=== PATIENT | male | born 2000 | race Caucasian/White ===

== ENCOUNTER 2020-10-26 13:33 | Emergency (ER) | payer BC, MEDICAID, SELFPAY ==
[2020-10-26 13:34] VITALS: BP 121/69; PULSE 77; RESP 18; TEMP 36.1; O2SAT 99; BMI 25.2
--- NOTE | 2020-10-26 13:57 | RAD_ITS ---
STUDY: X-RAY CHEST REASON FOR EXAM: Male., 20 years old. Chest pain. TECHNIQUE: Single AP portable view of the chest. COMPARISON: None. FINDINGS: The lungs are clear and expanded. There is no demonstrated pleural abnormality. Normal size heart. Normal mediastinum and rohan. Normal visualized pulmonary arteries. Normal visualized aortic arch and descending thoracic aorta. Normal visualized thoracic spine. Normal visualized ribs, clavicles, and shoulders. There is no demonstrated abnormality of the visualized soft tissue structures of the upper abdomen. RAD/Chest 1 View (Portable) IMPRESSION: Normal x-ray examination of the chest. Electronically Signed: Juni Leung DO at 14:44 EDT Tel [phone], Service support ,
[2020-10-26] MEDS: Ketorolac 30 MG/ML Syringe IM (14:04)
--- NOTE | 2020-10-26 15:04 | ED.VISSUMM ---
- ER Visit Summary Date of Service: 10/26/20 Chief Complaint: Upper back pain History of Present Illness: The patient is a [address] Carrera. He reports that he woke up from sleep this morning with a sharp, stabbing mid back pain. Is 10 of 10 worst and a 10 currently. Is worsened by putting on his coat or opening doors. Has not taken anything for pain. Reports that he tested negative for Covid 2 days ago. Patient denies any trauma. No fall, MVA, or change in activity. He has no personal family history of DVT. No recent travel. No ankle swelling or calf pain. Patient [place] fever, chills, or cough. Physical Examination: Vitals: Stable. Afebrile. General: Well-nourished and well-developed. Head: Normocephalic atraumatic. Neck: Supple, no lymphadenopathy. No JVD. Nontender. Cardiovascular: Regular rate and rhythm. No murmurs. Respiratory: No respiratory distress. Clear to auscultation bilaterally. Abdominal: Soft, nontender, nondistended, normal bowel sounds. No guarding, rebound, or peritoneal signs. Back: Pain is reproduced with palpation of the right rhomboid muscle. Extremities: Nontender, no edema. Skin: Normal color, no rash. Neurologic: Alert and oriented ?3. Cranial nerves II through XII are intact. Normal strength and sensation. Psych: Normal affect. Test Results: Clinical Impression(s) from Imaging Studies Chest X-Ray 10/26/20 13:57 IMPRESSION: Normal x-ray examination of the chest. Electronically Signed: Juin Leung DO at 14:44 EDT Tel [phone], Service support , Emergency Department Course and Treatment: Patient was given Toradol IM. She he is resting comfortably. His chest x-ray does not show pneumothorax. Treatment Plan: Patient be discharged with naproxen. Instructed to use warm compresses to the area. Follow-up his primary care physician in 3 to 5 days if not improving. Return to the emergency department for any worsening symptoms. Disposition: To home in improved and stable condition. Impression: 1. Muscular upper back pain. This note was generated with Get[employer] software. It may contain incorrect words, spelling, and punctuation that were not noted in review of the chart prior to signing ED Disposition - Plan for ED Patient: Disposition: Home or Assisted Living Instructions: ED Back Spasm, No Trauma Prescriptions: Naproxen [Naprosyn] 500 mg PO BID #14 tablet Prescription Printed Referrals: Ольга Delong [NON-STAFF] - 3-5 Days if not improving
[2020-10-26 15:10] VITALS: BP 128/76; PULSE 82; RESP 15; O2SAT 98
== END 2020-10-26 15:11 | disposition home or self-care (01) ==
LOC: ED 14:28
PROVIDERS: Emergency Provider Emergency Medicine
DX: M54.9 Dorsalgia, unspecified (principal); R06.00 Dyspnea, unspecified; R11.0 Nausea; R19.7 Diarrhea, unspecified; R51.9 Headache, unspecified
CPT/HCPCS: 71045; 96372; 99282

== ENCOUNTER 2020-12-24 22:05 | Emergency (ER) | payer BC, MEDICAID, SELFPAY ==
[2020-12-24 22:06] VITALS: BP 139/71; PULSE 78; RESP 18; TEMP 36.9; O2SAT 97; BMI 22.3
--- NOTE | 2020-12-24 22:26 | EX.ED.DYSGE1 ---
HPI History of Present Illness Chief Complaint: Dizziness Informant: patient Narrative Narrative: 20-year-old male presents with 17 hours of dizziness. He states that he has some nausea associated with it. He notes a pressure in the back of his head. He notes ringing in the left ear. He states that if he is in a dark room laying down and is better but if he gets up to move it is worse. He attempted to go to work tonight but states that the dizziness caused him to almost fall over. He denies any arm or leg weakness. States he is currently being treated for GERD and has an upcoming colonoscopy and endoscopy. States he sees a neurologist for arachnoid cyst. He has had symptoms like this in the past that have resolved. This however has not been resolving. Though he does state that the last time this happened it lasted approximately 5 days. [facility] Medical History Arachnoid cyst GERD (gastroesophageal reflux disease) Home Medications diazepam 5 mg PO Q8 PRN #15 tab 12/24/20 [Rx Last Taken Unknown] ondansetron 4 mg PO Q6H PRN PRN #15 tab 12/24/20 [Rx Last Taken Unknown] pantoprazole 40 mg PO DAILY 12/24/20 [History Last Taken Unknown] Allergy/AdvReac Type Severity Reaction Status Date / Time acetaminophen [From Vicodin] Allergy Anaphylaxis Verified 12/24/20 22:09 hydrocodone [From Vicodin] Allergy Anaphylaxis Verified 12/24/20 22:09 Sulfa (Sulfonamide Allergy Hives Verified 12/24/20 22:09 Antibiotics) Social History (Updated 12/24/20 @ 22:[address] Jarrett Steinberg DO) Smoking Status: Never smoker substance use type: does not use ROS ROS ED Constitutional Constitutional ED: Denies chills or weight loss Eyes Eyes: Denies change in vision or diplopia ENT ENT ED: Reports other Details: Ringing in the Left ear ; Denies ear pain, rhinorrhea or sore throat Cardiovascular Cardiovascular: Denies chest pain, orthopnea, palpitations or racing heartbeat Respiratory/Chest Respiratory/Chest: Denies cough, dyspnea or orthopnea Gastrointestinal Gastrointestinal: Denies abdominal pain, diarrhea, nausea or vomiting Genitourinary Genitourinary ED: Denies dysuria, hematuria or urinary frequency Musculoskeletal Musculoskeletal: Denies arthralgias or myalgias Integumentary Denies abscess or rash Neurologic Neurologic: Reports headache(s) and other Details: Dizziness ; Denies weakness Psychiatric Psychiatric: Denies anxiety, depression, suicidal ideation or suicidal thoughts Endocrine Endocrinology: Denies polydipsia, polyphagia or polyuria Allergic/Immunologic Allergic/Immunologic ED: Denies mouth swelling, tongue swelling or urticaria EXAM Physical Exam Const Vital Signs: 12/24/20 22:06 Temperature 98.4 F Temperature Source Temporal Pulse Rate 78 Respiratory Rate 18 Blood Pressure 139/71 H Blood Pressure Mean 93 Pulse Ox 97 Oxygen Delivery Method Room Air Positive well nourished and well developed General Appearance ED: well developed HEENT Reports normocephalic, head/scalp atraumatic and moist mucous membranes HEENT Narrative: There is fluid behind the left tympanic membrane. No significant erythema. Landmarks are decreased compared to right Eyes PERRL and EOMs intact bilaterally Eyes Narrative: No nystagmus Neck no lymphadenopathy, supple and no JVD Resp normal respiratory effort and clear to auscultation bilaterally Cardio regular rate, regular rhythm and no murmurs GI normal to inspection, nondistended, normoactive bowel sounds and non-tender Palpation: soft Back/Spine no CVA tenderness and normal ROM Extremity normal to inspection General Extremety ED: Negative for edema General Extremity: Negative for edema Neuro oriented x3 and CN's II-XII intact bilaterally Neuro Narrative: Positive [place] Sensorium / Orientation: alert Motor Exam: strength 5/5 throughout Psych mental status grossly normal Mood & Affect: Negative for depressed or tearful Skin no rashes or lesions noted and no wounds MDM MDM MDM Narrative Medical decision making narrative: Patient received IV fluids, Zofran, Toradol, and Valium. I believe this to be a peripheral vertigo. Repeat examination the patient was able to walk down the hallway to the bathroom. He states the headache is improved and his dizziness is improved but still present. I will write for him to have Zofran and Valium at home. I recommend he follow-up with his primary care physician. He states he would consider following up with an ENT and I will provide him the on-call manual training teacher. Discharge Plan Triage Chief Complaint: Dizziness ED Provider: Jarrett Steinberg Dx/Rx/DC Orders Clinical Impression: Vertigo Instructions: ED BPV Vertigo Prescriptions: New diazepam [diazepam] 5 MG tablet 5 mg PO Q8 PRN (Reason: vertigo) Qty: 15 RF: 0 ondansetron [ondansetron] 4 MG tablet 4 mg PO Q6H PRN PRN (Reason: Nausea) Qty: 15 RF: 0 No Action pantoprazole 40 mg tablet,delayed release (DR/EC) 40 mg PO DAILY RF: 0 Primary Care Provider: Beena Carrera NP Referrals: Abe Payan MD [STAFF PHYSICIAN] - As Needed (As needed if you wish to see ENT in follow-up) Beena Carrera NP, ASSISTANT TEACHING PROFESSOR-C [Primary Care Provider] - 3-5 Days if not improving Disposition Disposition: Home, Self Care
[2020-12-24] MEDS: diazePAM 5 MG Tablet PO (22:44)
[2020-12-24] MEDS: Ondansetron 4 MG/2 ML Vial IV (22:45)
[2020-12-24] MEDS: 0.9% Normal Saline 1,000 ML 1000 ML IV (22:45)
[2020-12-24] MEDS: Ketorolac 30 MG/ML Syringe IV (22:45)
[2020-12-25 00:09] VITALS: BP 118/68; PULSE 72; RESP 18; O2SAT 98
== END 2020-12-25 00:10 | disposition home or self-care (01) ==
PROVIDERS: Emergency Provider Emergency Medicine; PCP Nurse Practitioner Family
DX: H81.399 Other peripheral vertigo, unspecified ear (principal); G93.0 Cerebral cysts; K21.9 Gastro-esophageal reflux disease without esophagitis
CPT/HCPCS: 96361; 96374; 96375; 99284; J7030; J2405

== ENCOUNTER 2021-05-25 15:11 | Emergency (ER) | payer OTHER, BC, MEDICAID, SELFPAY ==
[2021-05-25 15:13] VITALS: BP 131/70; PULSE 93; RESP 18; TEMP 35.8; O2SAT 100; BMI 24.8
--- NOTE | 2021-05-25 15:58 | RAD_ITS ---
STUDY: X-RAY - THORACIC SPINE REASON FOR EXAM: Male, 21 years old. Injury/Pain TECHNIQUE: 3 view(s) of the thoracic spine were obtained. COMPARISON: None. FINDINGS: Normal kyphosis of the thoracic spine. There is no substantial scoliosis. Normal thoracic vertebrae and endplates. Normal disc space heights. The soft tissue structures are unremarkable. RAD/Thoracic Spine 3 Views IMPRESSION: Normal x-ray examination of the thoracic spine. Electronically Signed: Abe Mark MD at 19:22 EST , Service support ,
--- NOTE | 2021-05-25 16:06 | ED.VIS.BACK ---
HPI History of Present Illness Chief Complaint: Back Informant: patient Onset/Context/Timing Onset: Today Injury: lifting Timing: Continuous Quality: Sharp Location: Thoracic Worsened by: improves with Movement Relieved by: Nothing Associated Symptoms Associated Symptoms: Tingling; Negative for Numbness, Radiation to Right Leg, Radiation to Left Leg, Fever, Abdominal Pain, Dysuria, Unable to Ambulate, Unable to Transfer, Urinary Retention, Urinary Incontinence, Constipation and Fecal Incontinence Narrative Narrative: Patient presents with back pain that began today while he was at work. Patient states he was lifting some boxes while he was at work. Patient states he felt pain in his mid thoracic area. Patient states the pain radiates around into his chest. Patient describes the pain as sharp. Patient states the pain is worse with deep breathing. Patient admits to some tingling in that area. Patient denies any radiation of the pain to his lower legs. Patient denies abdominal pain. Patient denies any urinary complaints. [facility] Medical History Arachnoid cyst GERD (gastroesophageal reflux disease) Home Medications NK 05/25/21 [History Last Taken Unknown] Allergy/AdvReac Type Severity Reaction Status Date / Time acetaminophen [From Vicodin] Allergy Anaphylaxis Verified 05/25/21 15:12 hydrocodone [From Vicodin] Allergy Anaphylaxis Verified 05/25/21 15:12 Sulfa (Sulfonamide Allergy Hives Verified 05/25/21 15:12 Antibiotics) Social History Smoking Status: Never smoker substance use type: does not use ROS ROS ED Constitutional Constitutional ED: Denies chills or fever(s) Eyes Eyes: Denies blurry vision or change in vision ENT ENT ED: Reports rhinorrhea; Denies sore throat Cardiovascular Cardiovascular: Reports chest pain; Denies palpitations Respiratory/Chest Respiratory/Chest: Reports dyspnea; Denies cough Gastrointestinal Gastrointestinal: Denies nausea or vomiting Genitourinary Genitourinary ED: Denies dysuria or hematuria Musculoskeletal Musculoskeletal: Reports back pain; Denies neck pain Integumentary Denies abscess or rash Neurologic Neurologic: Reports headache(s); Denies weakness Allergic/Immunologic Allergic/Immunologic ED: Denies mouth swelling or urticaria EXAM Physical Exam Const Vital Signs: 05/25/21 15:13 05/25/21 18:30 Temperature 96.5 F L Temperature Source Temporal Pulse Rate 93 Respiratory Rate 18 15 Blood Pressure 131/70 H Blood Pressure Mean 90 Pulse Ox 100 Oxygen Delivery Method Room Air Positive well nourished and well developed General Appearance ED: well developed HEENT Reports moist mucous membranes Neck supple and no JVD Resp normal respiratory effort and clear to auscultation bilaterally Cardio regular rate and regular rhythm GI normal to inspection, nondistended, normoactive bowel sounds and soft to palpation Back/Spine Back/Spine Narrative: There is tenderness over the left lower thoracic paraspinal muscles. There is no midline tenderness. There is no bony crepitance or step-off. Range of motion was slightly limited in all motions of the thoracic spine secondary to pain. Strength is 5/5 bilaterally in the upper and lower extremities. There are no sensory deficits noted. Extremity normal to inspection Neuro oriented x3 and no sensory deficits noted Sensorium / Orientation: alert Motor Exam: strength 5/5 throughout Psych mental status grossly normal MDM MDM MDM Narrative Medical decision making narrative: X-rays of the thoracic spine were obtained. There are 3 views. On my interpretation, there is no acute fracture or spondylolisthesis. Radiologist also interpreted the x-rays and agrees. Patient was advised that this is most likely muscle strain. Patient was given some restrictions for work. Patient was instructed to take Tylenol or ibuprofen as needed for pain. Patient was instructed to use ice to the area. Patient was instructed to follow-up with his primary care physician in 5 to 7 days. Patient understood and was agreeable with the plan. All questions were answered. Radiography Diagnostic Testing: Clinical Impression(s) from Imaging Studies Thoracic Spine X-Ray 05/25/21 15:58 IMPRESSION: Normal x-ray examination of the thoracic spine. Electronically Signed: Abe Mark MD at 19:22 EST , Service support , Discharge Plan Triage Chief Complaint: Back ED Provider: Marcellus De La Cruz Dx/Rx/DC Orders Clinical Impression: Acute thoracic myofascial strain Instructions: ED Thoracic Spine Strain Prescriptions: No Action NK RF: 0 Primary Care Provider: Tyra Lozada NP Referrals: [facility] [NON-STAFF] - 3-5 Days Tyra Lozada NP, [facility] [Primary Care Provider] - 3-5 Days Disposition Disposition: Home, Self Care
[2021-05-25 18:30] VITALS: RESP 15
[2021-05-25 20:31] VITALS: PULSE 82; RESP 16; O2SAT 98
== END 2021-05-25 20:40 | disposition home or self-care (01) ==
PROVIDERS: Emergency Provider Emergency Medicine; PCP Nurse Practitioner Family
DX: S29.012A Strain of muscle and tendon of back wall of thorax, initial encounter (principal); X50.9XXA Other and unspecified overexertion or strenuous movements or postures, initial encounter; Y93.9 Activity, unspecified; Y92.9 Unspecified place or not applicable
CPT/HCPCS: 72072; 99282

== ENCOUNTER 2021-07-04 09:49 | Emergency (ER) | payer MEDICAID, SELFPAY ==
[2021-07-04 09:50] VITALS: BP 135/78; PULSE 99; RESP 16; TEMP 35.7; O2SAT 100; BMI 27.2
--- NOTE | 2021-07-04 10:23 | EDS_ITS ---
HPI HPI - URI History of Present Illness Chief Complaint: Nausea/Vomiting Narrative Narrative: 21-year-old male presenting with nausea/vomiting. He states this started about 3 AM last evening. He states that for the last few days he has had generalized fatigue, mild cough, low-grade fevers. He has not lost taste or smell. Patient states that his mother currently has COVID-19. He was tested yesterday and was negative. Patient denies chest pain or shortness of breath. He states he does not have any significant medical history. ROS ROS ED Constitutional Constitutional ED: Reports chills and fever(s) Eyes Eyes: Denies blurry vision or diplopia ENT ENT ED: Reports rhinorrhea and sore throat Cardiovascular Cardiovascular: Denies chest pain or palpitations Respiratory/Chest Respiratory/Chest: Reports cough; Denies dyspnea Gastrointestinal Gastrointestinal: Reports nausea and vomiting; Denies abdominal pain Genitourinary Genitourinary ED: Denies dysuria or hematuria Musculoskeletal Musculoskeletal: Reports myalgias; Denies arthralgias or neck pain Integumentary Denies Abrasions or rash Neurologic Neurologic: Reports headache(s); Denies paresthesias or weakness Psychiatric Psychiatric: Denies anxiety or depression PFSH PFSH Medical History Acute thoracic myofascial strain Arachnoid cyst GERD (gastroesophageal reflux disease) Home Medications cyclobenzaprine 10 mg tablet 10 mg PO TID PRN #30 tab 05/28/21 [Rx Last Taken Unknown] ibuprofen 600 mg tablet 600 mg PO Q6H #40 tab 05/28/21 [Rx Last Taken Unknown] ondansetron 4 mg PO Q8H PRN PRN #20 tab 07/04/21 [Rx Last Taken Unknown] Allergy/AdvReac Type Severity Reaction Status Date / Time acetaminophen [From Vicodin] Allergy Anaphylaxis Verified 07/04/21 09:52 hydrocodone [From Vicodin] Allergy Anaphylaxis Verified 07/04/21 09:52 Sulfa (Sulfonamide Allergy Hives Verified 07/04/21 09:52 Antibiotics) Social History Smoking Status: Never smoker substance use type: does not use EXAM Physical Exam Const Vital Signs: 07/04/21 09:50 Temperature 96.3 F L Temperature Source Temporal Pulse Rate 99 Respiratory Rate 16 Blood Pressure 135/78 H Blood Pressure Mean 97 Pulse Ox 100 Oxygen Delivery Method Room Air Positive well nourished General Appearance ED: NAD; Negative for pallor HEENT Reports moist mucous membranes normocephalic and atraumatic Eyes PERRL and EOMs intact bilaterally Neck supple and no meningeal signs Resp normal respiratory effort and clear to auscultation bilaterally Cardio Rate: regular rate Rhythm: regular rhythm GI non-tender and non-distended Palpation: soft Extremity normal to inspection; Negative for full ROM General Extremety ED: Negative for cyanosis General Extremity: Negative for cyanosis Neuro oriented x3 and CN's II-XII intact bilaterally Sensorium / Orientation: alert Psych mental status grossly normal Skin General Skin Exam: Negative for jaundice or pallor Rashes: no rashes MDM MDM MDM Narrative Medical decision making narrative: Patient with symptoms of COVID-19 and currently in contact with his mother who was tested positive although he tested negative. His main complaint today is nausea and vomiting. This started about 3 AM. I will retest the patient for COVID-19 and give him Zofran. If he is doing well I will try p.o. challenge to get him home. Patient did well with Zofran. He no longer feels nauseous. He does request that I refer him for monoclonal antibodies and this is ordered. Patient given a prescription for Zofran for home. He will quarantine. He is given a work note. Return precautions were discussed. Impression: 1. COVID-19 2. Nausea/ Discharge Plan Triage Chief Complaint: Nausea/Vomiting ED Provider: Clifton Daniels Dx/Rx/DC Orders Instructions: Coronavirus Disease 2019 (COVID-19): Caring for Yourself or Others, ED - COVID Monoclonal AB Infusion ... Prescriptions: New ondansetron 4 mg tablet,disintegrating 4 mg PO Q8H PRN PRN (Reason: Nausea) Qty: 20 RF: 0 No Action ibuprofen 600 mg tablet 600 mg PO Q6H Qty: 40 RF: 0 cyclobenzaprine 10 mg tablet 10 mg PO TID PRN (Reason: muscle spasm) Qty: 30 RF: 0 Stand Alone Forms: ED Work / School Excuse Primary Care Provider: Tyra Lozada NP Referrals: Tyra Lozada NP, [employer]NEY-[facility] [Primary Care Provider] - Disposition Disposition: Home, Self Care Discharge Date/Time: 07/04/21 11:50
[2021-07-04] MEDS: Ondansetron ODT 4 MG Tablet PO (10:40)
== END 2021-07-04 11:50 | disposition home or self-care (01) ==
LOC: ED 10:57
PROVIDERS: Emergency Provider Student in an Organized Health Care Education/Training Program; PCP Nurse Practitioner Family
DX: U07.1 COVID-19 (principal); R11.2 Nausea with vomiting, unspecified; K21.9 Gastro-esophageal reflux disease without esophagitis
CPT/HCPCS: 87426; 99283

== ENCOUNTER 2021-07-07 17:27 | Outpatient (CLI) | payer MEDICAID, SELFPAY ==
[2021-07-07 17:37] VITALS: BP 120/77; PULSE 91; RESP 16; TEMP 36.3; O2SAT 100; BMI 26.5
[2021-07-07 18:41] VITALS: BP 108/72; PULSE 89; RESP 16; TEMP 37.1; O2SAT 99
[2021-07-07 19:37] VITALS: BP 109/74; PULSE 90; RESP 16; TEMP 37.2; O2SAT 99
== END 2021-07-07 23:59 | disposition home or self-care (01) ==
LOC: MS3OUT 17:27 → MS3 17:28
PROVIDERS: PCP Nurse Practitioner Family; Referring Provider Student in an Organized Health Care Education/Training Program; Visit Provider Student in an Organized Health Care Education/Training Program
DX: Z23 Encounter for immunization (principal); U07.1 COVID-19
CPT/HCPCS: M0243; Q0240 ×2; J7050

== ENCOUNTER 2021-07-07 23:47 | Emergency (ER) | payer MEDICAID, SELFPAY ==
[2021-07-07 23:48] VITALS: BP 128/78; PULSE 79; RESP 16; TEMP 36.1; O2SAT 100; BMI 25.8
--- NOTE | 2021-07-07 23:52 | EKG12_ITS ---
Test Reason : CP Blood Pressure : / mmHG Vent. Rate : 066 BPM Atrial Rate : 066 BPM P-R Int : 154 ms QRS Dur : 090 ms QT Int : 382 ms P-R-T Axes : 058 064 056 degrees QTc Int : 400 ms Normal sinus rhythm with sinus arrhythmia Normal ECG No previous ECGs available Confirmed by DEMETRIO QUACH, MEGHAN ([id number]), editor publications SAGAR JACKSON ([id number]) on 07/18/2021 7:53:36 AM Referred By: MANJU Confirmed By:THI ATKINSON MD
--- NOTE | 2021-07-08 00:14 | RAD_ITS ---
STUDY: X-RAY CHEST REASON FOR EXAM: Male, 21 years old. Chest pain TECHNIQUE: Single AP portable view x2 of the chest. COMPARISON: None. FINDINGS: The lungs are clear and expanded. There is no demonstrated pleural abnormality. Normal size heart. Normal mediastinum and rohan. Normal visualized pulmonary arteries. Normal visualized aortic arch and descending thoracic aorta. Normal visualized thoracic spine. Normal visualized ribs, clavicles, and shoulders. There is no demonstrated abnormality of the visualized soft tissue structures of the upper abdomen. RAD/Chest 1 View (Portable) IMPRESSION: Normal x-ray examination of the chest. Electronically Signed: Gloria Barraza MD at 1:20 EST Tel , Service support ,
[2021-07-08 01:01] LABS: Absolute Lymphocyte Count 1.96 X10^3/uL (0.83-4.51); Absolute Neutrophil Count 2.1 X10^3/uL (2.0-7.7); Basophil# 0.02 X10^3/uL; Basophil% 0.4 % (0-1); Eosinophil# 0.09 X10^3/uL; Hematocrit 40.2 % (40-54); Hemoglobin 14.9 g/dL (13.0-16.5); Lymphocyte # 1.96 X10^3/ul (0.83-4.51); Lymphocyte % 43.5 % (19-41); Mean Corp Hgb Conc 37.1 g/dL (32-36); Mean Corpuscular Hgb 31.8 pg (27.0-32.0); Mean Corpuscular Volume 85.9 fL (80-94); Mean Platelet Vol. 9.5 fl (6.2-12.0); Monocyte# 0.38 X10^3/uL; Monocyte% 8.4 % (0-10); NRBC Flagged by Analyzer 0 % (0-5); Neutrophil # 2.05 X10^3/uL (2.7-7.7); Neutrophil % 45.5 % (47-70); Platelet Count 228 K/mm3 (150-450); RBC Distribution Width SD 34.3 fl (35.1-43.9); Red Blood Count 4.68 M/mm3 (4.6-6.2); White Blood Count 4.5 K/mm3 (4.4-11.0)
[2021-07-08 01:25] LABS: Anion Gap 5 (5-15); BUN 14 mg/dL (7-18); BUN/Creat Ratio 20.6 RATIO (10-20); Calcium,Total 9.1 mg/dL (8.5-10.1); Chloride 104 mmol/L (98-107); Creatinine, Serum 0.68 mg/dL (0.70-1.30); EST Glomerular Filtration Rate 156 mL/min (>60); Est Glom Filt Rate - Afr Amer 188 mL/min (>60); Estimated Creatinine Clearance 177.43 ml/min; Glucose 99 mg/dL (74-106); Potassium 3.8 mmol/L (3.5-5.1); Sodium Level 137 mmol/L (136-145); Troponin-I HS 4 pg/mL (3.0-78.0)
[2021-07-08 01:54] VITALS: BP 131/75; PULSE 69; RESP 16; O2SAT 98
--- NOTE | 2021-07-08 02:35 | EX.ED.DYSGE1 ---
HPI History of Present Illness Chief Complaint: Chest Pain Narrative Narrative: Patient is a 21-year-old male who presents with complaint of chest. He reports that there is no nausea vomiting diaphoresis or shortness of breath associated with this. He denies any recent trauma or excessive activity. He denies any family history of cardiac disease at a young age and he denies any excessive stimulant use or drug use. He also denies any recent surgery travel or history of DVT/PE. Patient states he has had these symptoms in the past but they typically resolve after an hour and this is persisted and therefore he comes in for evaluation [facility] Medical History Acute thoracic myofascial strain Arachnoid cyst GERD (gastroesophageal reflux disease) Home Medications ibuprofen 600 mg tablet 600 mg PO Q6H #40 tab 05/28/21 [Rx Last Taken Unknown] ondansetron 4 mg PO Q8H PRN PRN #20 tab 07/04/21 [Rx Last Taken Unknown] cholecalciferol (vitamin D3) 50,000 mcg PO WE 07/07/21 [History Last Taken Unknown] Allergy/AdvReac Type Severity Reaction Status Date / Time acetaminophen [From Vicodin] Allergy Anaphylaxis Verified 07/07/21 23:50 hydrocodone [From Vicodin] Allergy Anaphylaxis Verified 07/07/21 23:50 Sulfa (Sulfonamide Allergy Hives Verified 07/07/21 23:50 Antibiotics) Social History Smoking Status: Never smoker substance use type: does not use ROS ROS ED Constitutional Constitutional ED: Denies chills or fever(s) ENT ENT ED: Denies sore throat Cardiovascular Cardiovascular: Reports chest pain; Denies palpitations or racing heartbeat Respiratory/Chest Respiratory/Chest: Denies cough or dyspnea Gastrointestinal Gastrointestinal: Denies abdominal pain, diarrhea, nausea or vomiting Genitourinary Genitourinary ED: Denies dysuria Musculoskeletal Musculoskeletal: Denies myalgias Integumentary Denies rash Neurologic Neurologic: Denies headache(s) Hematologic/Lymphatic Hematologic/Lymphatic: Denies easy bleeding or easy bruising EXAM Physical Exam Const Vital Signs: 07/07/21 23:48 07/08/21 01:54 Temperature 96.9 F L Temperature Source Temporal Pulse Rate 79 69 Respiratory Rate 16 16 Respiratory Effort Normal Respiratory Pattern Normal Blood Pressure 128/78 H 131/75 H Blood Pressure Mean 94 93 Pulse Ox 100 98 Oxygen Delivery Method Room Air Room Air Positive well nourished and well developed General Appearance ED: well developed Eyes PERRL and EOMs intact bilaterally Neck supple Chest Wall palpation of chest normal Resp normal respiratory effort and clear to auscultation bilaterally Cardio regular rate and regular rhythm Rate: other Other Details: Radial pulses are plus 2 out of 4 bilaterally are equal and symmetric GI normal to inspection, nondistended, normoactive bowel sounds, non-tender, non-distended and no masses Auscultation: normoactive bowel sounds Palpation: soft Extremity normal to inspection Extremity Narrative: No asymmetric edema no pitting edema negative Homans' sign bilaterally Neuro oriented x3 and CN's II-XII intact bilaterally Sensorium / Orientation: alert Motor Exam: strength 5/5 throughout Psych mental status grossly normal Skin no rashes or lesions noted MDM MDM MDM Narrative Medical decision making narrative: Patient presented to the ER with atypical chest pain and is low risk for cardiac disease. He has had these similar symptoms in the past but as these were lasting longer I did elect to perform a basic cardiac work-up. As he is not tachycardic or hypoxic and has no risk factors for DVT/PE I felt no need for D-dimer. Blood work revealed no acute findings chest x-ray revealed no acute lung pathology. Therefore at this time with overall negative work-up and the fact the patient is low risk for CAD he is safe for discharge Lab Data Attestation: I reviewed the patient's lab results. Labs: Laboratory Results - last 24 hr 07/08/21 07/08/21 00:50 00:50 WBC 4.5 RBC 4.68 Hgb 14.9 Hct 40.2 MCV 85.9 MCH 31.8 MCHC 37.1 H RDW Std Deviation 34.3 L RDW Coeff of Navarro 11.0 L Plt Count 228 MPV 9.5 Immature Gran % (Auto) 0.200 Neut % (Auto) 45.5 L Lymph % (Auto) 43.5 H [place] % (Auto) 8.4 Eos % (Auto) 2.0 Baso % (Auto) 0.4 Absolute Neuts (auto) 2.1 Absolute Lymphs (auto) 1.96 Nucleated RBC % 0 Sodium 137 Potassium 3.8 Chloride 104 Carbon Dioxide 28.0 Anion Gap 5 BUN 14 Creatinine 0.68 L Estim Creat Clear Calc 177.43 Est GFR (MDRD) Af Amer 188 Est GFR (MDRD) Non-Af 156 BUN/Creatinine Ratio 20.6 H Glucose 99 Calcium 9.1 Troponin I High Sens 4 Radiography Diagnostic Testing: Clinical Impression(s) from Imaging Studies Chest X-Ray 07/08/21 00:14 IMPRESSION: Normal x-ray examination of the chest. Electronically Signed: Gloria Barraza MD at 1:20 EST Tel , Service support , Discharge Plan Triage Chief Complaint: Chest Pain ED Provider: Dong Burch Dx/Rx/DC Orders Clinical Impression: Acute nonspecific chest pain with low risk of coronary artery disease Instructions: ED Chest Pain, Uncertain Cause Prescriptions: No Action ibuprofen 600 mg tablet 600 mg PO Q6H Qty: 40 RF: 0 ondansetron 4 mg tablet,disintegrating 4 mg PO Q8H PRN PRN (Reason: Nausea) Qty: 20 RF: 0 cholecalciferol (vitamin D3) 1,250 mcg (50,000 unit) capsule 50,000 mcg PO WE RF: 0 Primary Care Provider: Tyra Lozada NP Referrals: Tyra Lozada NP, PLASTIC CABLEMAKING MACHINE OPERATOR-C [Primary Care Provider] - Disposition Disposition: Home, Self Care Discharge Date/Time: 07/08/21 03:04
[2021-07-08 03:03] VITALS: BP 107/76; PULSE 64; RESP 14; O2SAT 98
== END 2021-07-08 03:04 | disposition home or self-care (01) ==
PROVIDERS: Emergency Provider Emergency Medicine; PCP Nurse Practitioner Family; Visit Provider Emergency Medicine
DX: R07.89 Other chest pain (principal); K21.9 Gastro-esophageal reflux disease without esophagitis; Z23 Encounter for immunization; U07.1 COVID-19
CPT/HCPCS: 71045; 80048; 84484; 85025; 93005; 99283; J7050; M0243; A4216; Q0240

== ENCOUNTER 2021-07-12 22:45 | Emergency (ER) | payer MEDICAID, SELFPAY ==
[2021-07-12 22:45] VITALS: BP 150/94; PULSE 90; RESP 18; TEMP 36.1; O2SAT 94; BMI 26.5
--- NOTE | 2021-07-12 23:00 | ED.VIS.CHEST ---
HPI History of Present Illness Chief Complaint: Chest Pain Informant: patient Onset/Context/Timing Onset: Days Activity at onset: - (Chest burning that is in the epigastric area and radiates up to the right and left axilla, anxiety, dyspnea recent diagnosis of Covid) Timing: Continuous and Waxes and wanes Quality: Positive for Burning Location: - (Epigastric radiating to the right and left axilla) Current Severity: Mild Maximum Severity: Severe Worsened By: Movement of Arm, Movement of Torso and Breathing Relieved By: Nothing Associated Symptoms: Positive for Dyspnea (Dyspnea with any type of activity and at rest), Cough (No longer has a cough), Lightheadedness, Acid Reflux and Palpitations; Negative for Nausea, Vomiting, Diaphoresis and Fever Narrative Narrative: 41-year-old male who states his respiratory symptoms started on 30 June. He had a positive Covid test July 04. He did have monoclonal antibody infusion. He presents because of shortness of breath and chest burning which concerned him because it radiates to his right and left axilla. He was seen recently for similar symptoms. He denies history of PE or DVT. He denies leg pain, swelling or discoloration. He does have history of headaches due to brain cyst. Prior Similar Symptoms: Yes Recent Illness/Hospitalization: Yes CVD Risk Factors: Negative for Hypertension, Diabetes, Hypercholesterolemia, Family History 1' </=55 and Smoking PE Risk Factors: Negative for Recent Travel/Surgery, Recent Immobilization, Prior DVT or PE, Cancer and OCP + Smoking + >/=35 TAD Risk Factors: Negative for Marfan's Syndrome, Hypertension and Family History [facility] Medical History Acute thoracic myofascial strain Arachnoid cyst GERD (gastroesophageal reflux disease) Home Medications famotidine 20 mg PO DAILY 07/12/21 [History Last Taken Unknown] Allergy/AdvReac Type Severity Reaction Status Date / Time acetaminophen [From Vicodin] Allergy Anaphylaxis Verified 07/12/21 22:52 hydrocodone [From Vicodin] Allergy Anaphylaxis Verified 07/12/21 22:52 Sulfa (Sulfonamide Allergy Hives Verified 07/12/21 22:52 Antibiotics) Social History (Updated 07/12/21 @ 23:[address] Anurag Hawkins MD) Smoking Status: Never smoker alcohol intake: current alcohol intake frequency: other substance use type: does not use, former substance user and marijuana ROS ROS ED Constitutional Constitutional ED: Denies chills, fever(s) or subjective Eyes Eyes: Reports none ENT ENT ED: Denies ear pain, rhinorrhea or sore throat Cardiovascular Cardiovascular: Reports as per HPI; Denies orthopnea or paroxysmal nocturnal dyspnea Respiratory/Chest Respiratory/Chest: Reports cough, dyspnea and dyspnea on exertion; Denies orthopnea, paroxysmal nocturnal dyspnea or sputum Gastrointestinal Gastrointestinal: Reports other Details: Burning pain that originates in the epigastrium ; Denies abdominal pain, constipation, diarrhea, melena, nausea or vomiting Musculoskeletal Musculoskeletal: Reports arthralgias, back pain and myalgias; Denies neck pain Integumentary Denies abscess or rash Neurologic Neurologic: Reports headache(s); Denies paresthesias or weakness Endocrine Endocrinology: Denies polydipsia, polyphagia or polyuria Hematologic/Lymphatic Hematologic/Lymphatic: Denies easy bleeding or easy bruising Allergic/Immunologic Allergic/Immunologic ED: Denies mouth swelling, tongue swelling or urticaria EXAM Physical Exam Const Vital Signs: 07/12/21 22:45 07/12/21 22:54 Temperature 96.9 F L Temperature Source Temporal Pulse Rate 90 Respiratory Rate 18 Respiratory Effort Normal Blood Pressure 150/94 H Blood Pressure Mean 112 Pulse Ox 94 Oxygen Delivery Method Room Air Positive well nourished and well developed; Negative for obese, cachectic, contractures or unkempt General Appearance ED: well developed, NAD and other Patient became anxious as he was explaining his symptoms. ; Negative for unkempt, cachectic, contractures or pallor Nutritional Appearance: Negative for cachectic or obese HEENT Reports dry mucous membranes normocephalic and atraumatic; Negative for trauma or tenderness Mouth ED: Yes dry mucous membranes Mouth: dry mucous membranes Eyes PERRL and EOMs intact bilaterally General Eye ED: Negative for pale conjunctiva or scleral icterus Neck no lymphadenopathy, supple and no JVD Chest Wall inspection of chest normal and palpation of chest normal Resp normal respiratory effort and clear to auscultation bilaterally Effort and Inspection: respiratory distress Cardio regular rate, regular rhythm, S1 normal heart sound and S2 normal heart sound GI normal to inspection, nondistended, normoactive bowel sounds, soft to palpation and no masses GI Narrative: Mild discomfort in the epigastrium. Palpation: Negative for splenomegaly Back/Spine no CVA tenderness Extremity normal to inspection Extremity Narrative: There is no asymmetry, swelling, discoloration, leg vein distention, palpable cords or tenderness along the distribution of the deep venous system. General Extremety ED: Negative for edema, pulses abnormal or tenderness General Extremity: Negative for edema or pulses abnormal Neuro oriented x3 Sensorium / Orientation: awake and alert Motor Exam: strength 5/5 throughout Psych mental status grossly normal Appearance: Negative for unkempt Mood & Affect: anxious Skin no rashes or lesions noted and no wounds General Skin Exam: Negative for jaundice or pallor Heart Score History: Slightly/Non-Suspicious ECG: Normal Age: </= 45 years Risk Factors: No Risk Factors Score: 0 MDM MDM MDM Narrative Medical decision making narrative: Patient presents with symptoms that are consistent with Covid. Since she is complaining of diarrhea and has significant diarrhea with thirst and dry mouth will obtain basic metabolic panel to assess potassium. A 500 cc bolus was ordered. Chest x-ray was obtained to assess his complaint of chest pain and dyspnea. D-dimer was not obtained since patient is PERC negative. Lab Data Attestation: I reviewed the patient's lab results. Lab results narrative: Oratory results reviewed and unremarkable. Patient was informed of his laboratory results. Patient was informed that his symptoms are due to Covid Labs: Laboratory Results - last 24 hr 07/12/21 07/12/21 23:03 23:03 WBC 7.3 RBC 5.04 Hgb 15.9 Hct 44.2 MCV 87.7 MCH 31.5 MCHC 36.0 RDW Std Deviation 35.8 RDW Coeff of Navarro 11.1 L Plt Count 308 MPV 10.1 Immature Gran % (Auto) 0.100 Neut % (Auto) 61.0 Lymph % (Auto) 32.6 [place] % (Auto) 5.2 Eos % (Auto) 0.8 Baso % (Auto) 0.3 Absolute Neuts (auto) 4.4 Absolute Lymphs (auto) 2.38 Nucleated RBC % 0 Sodium 139 Potassium 3.8 Chloride 102 Carbon Dioxide 29.0 Anion Gap 8 BUN 13 Creatinine 0.76 Estim Creat Clear Calc 158.75 Est GFR (MDRD) Af Amer 167 Est GFR (MDRD) Non-Af 138 BUN/Creatinine Ratio 17.2 Glucose 89 Calcium 9.6 Radiography Chest X-Ray - ED: 1 View and Read by ED Physician (Single view portable chest x-ray interpreted by me at 2340. Chest x-ray reveals normal cardiac silhouette and size. Mediastinum/perihilar region normal. Lung parenchyma normal. Osseous structures are normal.) Discharge Plan Triage Chief Complaint: Chest Pain ED Provider: Anurag Hawkins Dx/Rx/DC Orders Clinical Impression: Dyspnea due to COVID-19, Non-cardiac chest pain, Diarrhea due to COVID-19, Mild dehydration Instructions: Coronavirus Disease 2019 (COVID-19): Overview, Coronavirus Disease 2019 (COVID-19): Caring for Yourself or Others, Dehydration, ED Chest Pain, Noncardiac Prescriptions: No Action famotidine 20 mg tablet 20 mg PO DAILY RF: 0 Primary Care Provider: Tyra Lozada NP Referrals: Tyra Lozada NP, SERVICE TECHNICIAN COPIER-C [Primary Care Provider] - 10-14 Days if not better Disposition Disposition: Home, Self Care
[2021-07-12] MEDS: Mag Hydrox/Al Hydrox/Simeth 30 ML UDC PO (23:12)
--- NOTE | 2021-07-12 23:15 | RAD_ITS ---
EXAM: XR CHEST, 1 VIEW : 2000 CLINICAL INDICATION: Chest discomfort and shortness of breath TECHNIQUE: Frontal view of the chest. This report was created using [employer] report generation technology. COMPARISON: 07/08/2021 FINDINGS: LUNGS AND PLEURAL SPACES: Unremarkable. No consolidation or edema. No pneumothorax. No effusion. HEART: Unremarkable. Cardiac silhouette not enlarged. MEDIASTINUM: Central airways and mediastinal contour are unremarkable. BONES/JOINTS: Unremarkable. SOFT TISSUES: Unremarkable. RAD/Chest 1 View (Portable) IMPRESSION: No radiographic evidence of acute cardiopulmonary disease. at 0110 Reported and signed by: Manny Hadley MD Electronically Signed: Manny Hadley MD at 1:09 EST Tel , Service support ,
[2021-07-12 23:39] LABS: Anion Gap 8 (5-15); BUN 13 mg/dL (7-18); BUN/Creat Ratio 17.2 RATIO (10-20); Calcium,Total 9.6 mg/dL (8.5-10.1); Chloride 102 mmol/L (98-107); Creatinine, Serum 0.76 mg/dL (0.70-1.30); EST Glomerular Filtration Rate 138 mL/min (>60); Est Glom Filt Rate - Afr Amer 167 mL/min (>60); Estimated Creatinine Clearance 158.75 ml/min; Glucose 89 mg/dL (74-106); Potassium 3.8 mmol/L (3.5-5.1); Sodium Level 139 mmol/L (136-145)
[2021-07-12 23:47] LABS: Absolute Lymphocyte Count 2.38 X10^3/uL (0.83-4.51); Absolute Neutrophil Count 4.4 X10^3/uL (2.0-7.7); Basophil# 0.02 X10^3/uL; Basophil% 0.3 % (0-1); Eosinophil# 0.06 X10^3/uL; Eosinophils% 0.8 % (0-5); Hematocrit 44.2 % (40-54); Hemoglobin 15.9 g/dL (13.0-16.5); Lymphocyte # 2.38 X10^3/ul (0.83-4.51); Lymphocyte % 32.6 % (19-41); Mean Corpuscular Hgb 31.5 pg (27.0-32.0); Mean Corpuscular Volume 87.7 fL (80-94); Mean Platelet Vol. 10.1 fl (6.2-12.0); Monocyte# 0.38 X10^3/uL; Monocyte% 5.2 % (0-10); NRBC Flagged by Analyzer 0 % (0-5); Neutrophil # 4.44 X10^3/uL (2.7-7.7); Platelet Count 308 K/mm3 (150-450); RBC Distribution Width CV 11.1 % (11.6-14.6); RBC Distribution Width SD 35.8 fl (35.1-43.9); Red Blood Count 5.04 M/mm3 (4.6-6.2); White Blood Count 7.3 K/mm3 (4.4-11.0)
[2021-07-13 00:08] VITALS: PULSE 62; RESP 15
== END 2021-07-13 00:09 | disposition home or self-care (01) ==
PROVIDERS: Emergency Provider Emergency Medicine; PCP Nurse Practitioner Family; Visit Provider Emergency Medicine
DX: U07.1 COVID-19 (principal); R07.89 Other chest pain; E86.0 Dehydration
CPT/HCPCS: 71045; 80048; 85025; 96360; 99284; A4216

== ENCOUNTER 2021-07-18 14:05 | Emergency (ER) | payer MEDICAID, SELFPAY ==
[2021-07-18 14:06] VITALS: BP 130/46; PULSE 62; RESP 16; TEMP 36.2; O2SAT 100; BMI 25.9
[2021-07-18 14:41] LABS: Absolute Lymphocyte Count 0.75 X10^3/uL (0.83-4.51); Absolute Neutrophil Count 7.7 X10^3/uL (2.0-7.7); Basophil# 0.01 X10^3/uL; Basophil% 0.1 % (0-1); Hematocrit 42.5 % (40-54); Lymphocyte # 0.75 X10^3/ul (0.83-4.51); Lymphocyte % 8.6 % (19-41); Mean Corp Hgb Conc 35.3 g/dL (32-36); Mean Corpuscular Hgb 30.7 pg (27.0-32.0); Mean Corpuscular Volume 86.9 fL (80-94); Mean Platelet Vol. 10.3 fl (6.2-12.0); Monocyte# 0.26 X10^3/uL; NRBC Flagged by Analyzer 0 % (0-5); Neutrophil # 7.67 X10^3/uL (2.7-7.7); Neutrophil % 88.2 % (47-70); Platelet Count 267 K/mm3 (150-450); RBC Distribution Width CV 11.1 % (11.6-14.6); RBC Distribution Width SD 35.2 fl (35.1-43.9); Red Blood Count 4.89 M/mm3 (4.6-6.2); White Blood Count 8.7 K/mm3 (4.4-11.0)
[2021-07-18 14:52] LABS: Anion Gap 5 (5-15); BUN 14 mg/dL (7-18); BUN/Creat Ratio 19.1 RATIO (10-20); Calcium,Total 9.6 mg/dL (8.5-10.1); Chloride 102 mmol/L (98-107); Creatinine, Serum 0.73 mg/dL (0.70-1.30); EST Glomerular Filtration Rate 143 mL/min (>60); Est Glom Filt Rate - Afr Amer 173 mL/min (>60); Estimated Creatinine Clearance 165.28 ml/min; Glucose 106 mg/dL (74-106); Potassium 4.4 mmol/L (3.5-5.1); Sodium Level 136 mmol/L (136-145)
[2021-07-18 15:17] LABS: Bacteria 0 SEEN /hpf (None Seen); Mucous, Urine 0 SEEN /hpf (<or=2+); Red Blood Cells-Urine 0 SEEN /hpf (0-5); Squamous Epithelial Cells - UA 0 SEEN /hpf (0-5); White Blood Cells 0 SEEN /hpf (0-5)
[2021-07-18 15:22] LABS: Color, Urine Yellow (Yellow); Glucose, Dipstick Normal (Normal); Ketone-Dipstick 15 mg/dl (Negative); Leukocyte Esterase-Dipstick Negative /ul (Negative); Nitrite-Dipstick Negative (Negative); Occult Blood-Urine Negative /ul (Negative); Protein-Dipstick Negative (Negative); Urine Bilirubin Dipstick Negative (Negative); Urine Clarity Clear (Clear); Urine Urobilinogen Normal (Normal)
--- NOTE | 2021-07-18 16:03 | ED.VIS.GI ---
HPI HPI - GI History of Present Illness Chief Complaint: Abd Pain Informant: patient Narrative Narrative: Patient is a 21-year-old male with recent COVID-19 infection that started on June 30 presenting with epigastric discomfort and pressure. Patient states he recently had diarrhea that started on 13 July. He diarrhea that lasted for about 4 days and then he started to feel constipated for 1 day. He then had diarrhea again and has had worsening pain in his epigastric region. He denies any black or blood in his stool. He notes his bowel movements been mostly mucus-like. He states he has intense pain in his epigastric/subxiphoid region and it feels like it is pushing up on my rib cage. It does radiate to his back. He has recently been on a course of ibuprofen and Decadron for COVID and what sounds like pleurisy related to it. He was told he possibly could have long-haul or syndrome. [facility] Medical History Acute thoracic myofascial strain Arachnoid cyst GERD (gastroesophageal reflux disease) Home Medications famotidine 20 mg PO DAILY 07/12/21 [History Last Taken Unknown] sertraline [Zoloft] 25 mg PO QHS #14 tab 07/13/21 [Rx Last Taken Unknown] famotidine [Pepcid] 20 mg PO BID #20 tab 07/18/21 [Rx Last Taken Unknown] sucralfate [Carafate] 1 g PO Q6H 14 Days #56 tab 07/18/21 [Rx Last Taken Unknown] Allergy/AdvReac Type Severity Reaction Status Date / Time acetaminophen [From Vicodin] Allergy Anaphylaxis Verified 07/18/21 14:09 hydrocodone [From Vicodin] Allergy Anaphylaxis Verified 07/18/21 14:09 Sulfa (Sulfonamide Allergy Hives Verified 07/18/21 14:09 Antibiotics) Social History Smoking Status: Never smoker alcohol intake: current alcohol intake frequency: other substance use type: does not use, former substance user and marijuana ROS ROS ED Constitutional Constitutional ED: Denies chills or fever(s) ENT ENT ED: Denies rhinorrhea or sore throat Cardiovascular Cardiovascular: Denies chest pain or palpitations Respiratory/Chest Respiratory/Chest: Denies cough or dyspnea Gastrointestinal Gastrointestinal: Reports abdominal pain and diarrhea; Denies melena, nausea or vomiting Musculoskeletal Musculoskeletal: Denies arthralgias or myalgias Integumentary Denies rash Neurologic Neurologic: Denies headache(s) or weakness Psychiatric Psychiatric: Denies depression EXAM Physical Exam Const Vital Signs: 07/18/21 14:06 Temperature 97.2 F L Temperature Source Temporal Pulse Rate 62 Respiratory Rate 16 Blood Pressure 130/46 H Blood Pressure Mean 74 Pulse Ox 100 Oxygen Delivery Method Room Air Positive well nourished and well developed General Appearance ED: well developed HEENT normocephalic and atraumatic Eyes PERRL and EOMs intact bilaterally Neck supple Resp normal respiratory effort and clear to auscultation bilaterally Cardio regular rate, regular rhythm and no murmurs GI non-distended GI Narrative: Negative Watts sign Auscultation: hyperactive bowel sounds Palpation: soft and tender epigastric; Negative for guarding or rigid Extremity full ROM General Extremety ED: Negative for edema or tenderness General Extremity: Negative for edema Neuro Sensorium / Orientation: alert, oriented to person, oriented to place and oriented to time Motor Exam: Negative for general weakness Psych mental status grossly normal Skin Lesions: no lesions Rashes: no rashes MDM MDM MDM Narrative Medical decision making narrative: Patient is evaluated for abdominal distention and discomfort. In his epigastric region. He is recently been on NSAIDs as well as Decadron and I suspect he has stomach irritation/inflammation associated with this. Patient appears nontoxic in no acute distress. His vital signs are normal. He is given GI cocktail, Pepcid and IV fluids in the ER with some improvement of his symptoms. His abdomen is nonperitoneal. Have a low suspicion for any type of ruptured ulcer. Laboratory work-up including CBC, lipase, CMP and urinalysis is largely unremarkable. He does have 15 ketones in his urine so he is given IV fluids for hydration. Patient is counseled to stop taking the steroids and NSAIDs is likely worsening his stomach. He is placed on Pepcid and Carafate to help with his symptoms. He is counseled he should follow-up with his primary care doctor and they can refer to GI if his symptoms do not improve. At this time I do not think imaging of the abdomen is indicated as I do not suspect an acute surgical process. Lab Data Labs: Laboratory Results - last 24 hr 07/18/21 07/18/21 07/18/21 14:25 14:25 14:25 WBC 8.7 RBC 4.89 Hgb 15.0 Hct 42.5 MCV 86.9 MCH 30.7 MCHC 35.3 RDW Std Deviation 35.2 RDW Coeff of Navarro 11.1 L Plt Count 267 MPV 10.3 Immature Gran % (Auto) 0.100 Neut % (Auto) 88.2 H Lymph % (Auto) 8.6 L [place] % (Auto) 3.0 Eos % (Auto) 0.0 Baso % (Auto) 0.1 Absolute Neuts (auto) 7.7 Absolute Lymphs (auto) 0.75 L Nucleated RBC % 0 Sodium 136 Potassium 4.4 Chloride 102 Carbon Dioxide 29.0 Anion Gap 5 BUN 14 Creatinine 0.73 Estim Creat Clear Calc 165.28 Est GFR (MDRD) Af Amer 173 Est GFR (MDRD) Non-Af 143 BUN/Creatinine Ratio 19.1 Glucose 106 Calcium 9.6 Total Bilirubin 0.90 Direct Bilirubin 0.25 AST 14 L ALT 28 Alkaline Phosphatase 46 Total Protein 8.2 Albumin 4.9 Globulin 3.3 Lipase Urine Color Urine Clarity Urine pH Ur Specific [place] Urine Protein Urine Glucose (UA) Urine Ketones Urine Occult Blood Urine Nitrite Urine Bilirubin Urine Urobilinogen Ur Leukocyte Esterase Urine RBC Urine WBC Ur Squamous Epith Cells Urine Bacteria Urine Mucus 07/18/21 07/18/21 14:25 15:10 WBC RBC Hgb Hct MCV MCH MCHC RDW Std Deviation RDW Coeff of Navarro Plt Count MPV Immature Gran % (Auto) Neut % (Auto) Lymph % (Auto) [place] % (Auto) Eos % (Auto) Baso % (Auto) Absolute Neuts (auto) Absolute Lymphs (auto) Nucleated RBC % Sodium Potassium Chloride Carbon Dioxide Anion Gap BUN Creatinine Estim Creat Clear Calc Est GFR (MDRD) Af Amer Est GFR (MDRD) Non-Af BUN/Creatinine Ratio Glucose Calcium Total Bilirubin Direct Bilirubin AST ALT Alkaline Phosphatase Total Protein Albumin Globulin Lipase 64 L Urine Color Yellow Urine Clarity Clear Urine pH 7.0 Ur Specific [place] 1.010 Urine Protein Negative Urine Glucose (UA) Normal Urine Ketones 15 H Urine Occult Blood Negative Urine Nitrite Negative Urine Bilirubin Negative Urine Urobilinogen Normal Ur Leukocyte Esterase Negative Urine RBC 0 SEEN Urine WBC 0 SEEN Ur Squamous Epith Cells 0 SEEN Urine Bacteria 0 SEEN Urine Mucus 0 SEEN Discharge Plan Triage Chief Complaint: Abd Pain ED Provider: Naz Brennan Dx/Rx/DC Orders Clinical Impression: Abdominal pain, acute, epigastric, Mild dehydration Instructions: ED PEPTIC ULCER vs GASTRITIS, ED Epigastric Pain Uncertain Cause Prescriptions: New famotidine [Pepcid] 20 mg tablet 20 mg PO BID Qty: 20 RF: 0 sucralfate [Carafate] 1 gram tablet 1 g PO Q6H 14 Days Qty: 56 RF: 0 No Action famotidine 20 mg tablet 20 mg PO DAILY RF: 0 sertraline [Zoloft] 25 mg tablet 25 mg PO QHS Qty: 14 RF: 0 Primary Care Provider: Tyra Lozada NP Referrals: Tyra Lozada NP, MAIL CLERKS SUPERVISOR-C [Primary Care Provider] - Activity Restrictions/Additional Instructions: Stop taking the steroids and ibuprofen prescribed as I think this is worsening your abdominal pain. Eat a low grease low acid diet until you are feeling better. You are not improving by Wednesday call your primary care doctor she might require referral for a GI doctor. Disposition Disposition: Home, Self Care Discharge Date/Time: 07/18/21 17:55
[2021-07-18 16:15] LABS: Lipase 64 U/L (73-393)
[2021-07-18 16:16] LABS: AST(SGOT) 14 U/L (15-37); Alanine Aminotransfer ALT/SGPT 28 U/L (16-61); Albumin, Serum 4.9 g/dL (3.2-5.0); Alkaline Phosphatase 46 U/L (45-117); Bilirubin, Direct 0.25 mg/dL (0.00-0.30); Globulin 3.3 g/dL (2.2-4.2); Protein, Total 8.2 g/dL (6.4-8.2)
[2021-07-18] MEDS: 0.9% Normal Saline 1,000 ML 999 ML IV (16:40)
[2021-07-18] MEDS: Famotidine 200 MG/20 ML MDV 20 MG in 0.9% Normal Saline (Pres. free 8 ML 300 MG IV (16:41)
[2021-07-18] MEDS: Mag Hydrox/Al Hydrox/Simeth 30 ML UDC PO (16:42)
== END 2021-07-18 17:55 | disposition home or self-care (01) ==
PROVIDERS: Emergency Provider Emergency Medicine; PCP Nurse Practitioner Family; Visit Provider Emergency Medicine
DX: R10.13 Epigastric pain (principal); E86.0 Dehydration
CPT/HCPCS: 80048; 80076; 81001; 83690; 85025; 96361; 96374; 99283; J7030; A4216; J3490